=== PATIENT | female | born 1965 | race Caucasian/White ===

== ENCOUNTER 2025-05-27 09:01 | Day surgery (SDC) | payer MEDICAID, SELFPAY ==
--- NOTE | 2025-05-26 19:00 | W.ANESPRE ---
General Info Date of Service Date Performed: 05/27/25 Height: 5 ft 1 in Weight: 87.09 kg Body Mass Index (BMI): 36.2 Surgical Procedure: Operation Date: 05/27/25 11:20 Proposed Procedure Side Surgeon p Gastroscopy Barbara Vallejo MD Meds Allergies and Home Medications Allergies Allergy/AdvReac Type Severity Reaction Status Date / Time No Known Allergies Allergy Verified 05/27/25 09:14 Home Medication ?Medication ?Instructions ?Recorded amlodipine 10 mg tablet 10 mg PO DAILY 05/04/25 losartan 50 mg tablet 50 mg PO DAILY 05/04/25 omeprazole 40 mg capsule,delayed 40 mg PO DAILY 05/04/25 release aspirin 81 mg tablet,delayed 81 mg PO DAILY 05/27/25 release Current Visit Medications: Current Medications Generic Name Dose Route Start Last Admin Trade Name Freq PRN Reason Stop Dose Admin Ringer's Solution 1,000 mls @ 80 mls/hr 05/27/25 06:00 IV 05/27/25 23:59 INFUSION KHUSHBOO IV Miscellaneous Supplies 1 each 05/27/25 06:00 Iv Access IV 05/27/25 23:59 DIRECTED KHUSHBOO Sodium Chloride 0 ml 05/27/25 06:00 Normal Saline Flush 10 Ml Syr IV 05/27/25 23:59 PRN PRN Sodium Chloride 0 ml 05/27/25 06:00 Normal Saline 10 Ml Vial IJ 05/27/25 23:59 DIRECTED PRN Sterile Water 0 ml 05/27/25 06:00 Water,Injection,Sterile 10 Ml Vial IJ 05/27/25 23:59 DIRECTED PRN FOR[facility]LY [facility] Medical History Medical History Abnormal barium swallow (~11/2024) Barium swallow 11/11/2024 done at [facility]. Dizziness and giddiness Gastro-esophageal reflux disease without esophagitis Carpal tunnel syndrome Essential (primary) hypertension Tobacco Smoking/Tobacco Use Status: Current every day Tobacco Type: cigarettes Passive smoking exposure: Yes Alcohol Alcohol Intake: current Alcohol intake frequency: 0-2 drinks per day Alcohol type: wine Substance Use Substance use: Never Substance use type: does not use Vital Signs and Lab Results Vital Signs Most Recent Vital Signs in EMR: Temp Pulse Resp BP Pulse Ox 36.3 C L 102 H 22 153/100 H 98 05/27/25 09:21 05/27/25 09:21 05/27/25 09:21 05/27/25 09:21 05/27/25 09:21 Anesthesia Assessment and Plan Anesthesia History Personal History: No History of Anesthesia Complications Family History: No Family History of Anesthesia Complications Exercise Tolerance Exercise Tolerance: Metabolic Equivalents>4 Cardiac & Pulmonary Exam Cardiac Exam: Normal S1/S2 Heart Sounds Pulmonary Exam: Clear Bilateral Breath Sounds Implantable Cardiac Device Does patient have a Pacemaker or an ICD?: No Airway Exam Known Difficult Airway: No Mallampati Class: 3 Mouth Opening: Narrow (< 3cm) Thyromental Distance: Less than 3 cm Neck Range of Motion: Limited ROM Neck Circumference: Thick Teeth Condition: Edentulous ASA Classification ASA Score: ASA 2 Emergency Case?: No NPO Status NPO Status: NPO Clears >2 hours, Solids >8 hours Anesthesia Plan Resuscitation Status: Full Code Anesthesia Technique: General Anesthesia Airway Planned: Natural Airway Monitors Used: Standard Monitors Preoperative Comments:: 60 yo for EGD. Sig PMHx: HTN (losartan, amlodipine), GERD (omeprazole), Smoker, occ EtOH.
[2025-05-27 09:21] VITALS: BP 153/100; PULSE 102; RESP 22; TEMP 36.3; O2SAT 98
[2025-05-27] MEDS: Lactated Ringers 1,000 ML 80 ML IV (09:49)
[2025-05-27 11:09] VITALS: BMI 36.2
--- NOTE | 2025-05-27 11:30 | BOWEL_PTH ---
PATIENT: Sabrina Cochran LOC: [facility] U#:[id number] AGE/SX: 60/F ROOM: RE05/27/[address]: Barbara Vallejo : 1965 BED: DIS: 05/27/2025 SPEC #: [id number] RECD: 05/27/25 12:28 STATUS: JONATHON REQ #: [id number] BRIE: 05/27/25 11:[address]: Barbara Vallejo DEPT: Surgical Specimen RECD BY: Lola Hardin ENTERED: 05/27/25 12:30 SP TYPE: Bowel OTHR DR: Michelle Carolina Tissues: 1 - BIOPSY BOWEL 2 - STOMACH BIOPSY 3 - BIOPSY BOWEL Procedures: GROSS AND MICRO LEVEL 4 Comments: [id number]
[2025-05-27 11:40] VITALS: BP 107/74; PULSE 89; RESP 16; TEMP 36.5; O2SAT 98
--- NOTE | 2025-05-27 11:56 | W.PM.DSUDISC ---
Date of service: 05/27/25 Discharge Plan Disposition Patient Disposition: Home Condition: Good Discharge Details Reason For Visit: Abnormal imaging study of esophagus Attending Provider: Barbara Vallejo Primary Care Provider: Michelle Carolina Recommendations for Follow Up Recommended tests to be ordered by follow up provider: Follow up pathology Home Meds and New Rx's Prescriptions: Continued losartan 50 mg tablet 50 mg PO DAILY omeprazole 40 mg capsule,delayed release(DR/EC) 40 mg PO DAILY amlodipine 10 mg tablet 10 mg PO DAILY aspirin 81 mg tablet,delayed release (DR/EC) 81 mg PO DAILY Discharge Instructions Additional Instructions: Your procedure went well today. You had some evidence of reflux changes at the esophagus. There was no definitive finding to match your previous imaging. Some routine biopsies were obtained and we will follow up once the pathology returns. Please contact the general surgery office if you have further questions or concerns. 1. Do not drive, drink alcohol, operate machinery, make critical decisions, or do activities that require coordination or balance for 24 hours. 2. Because air was put into your stomach during the procedure, expelling air or burping is normal. 3. Go directly to the emergency room if you notice any of the following: Develop chills (warm to touch), or if you have a thermometer and your temperature is above 101 Difficulty breathing or difficultly swallowing Persistent vomiting Severe abdominal pain, other than gas cramps Severe chest pain Black, tarry stools Any bleeding ? exceeding one tablespoon 4. Call your physician if the site where your intravenous was started becomes red, swollen, painful, and warm to touch. 5. Your physician has reviewed your pre-procedure medications. Please continue to take those medications as previously ordered. You will be given specific information/education regarding any changes to your medications before leaving. Activity:: Activity as Tolerated Diet:: As Tolerated Discharge Orders Discharge Orders: Discharge Order (Routine); Ordered 05/27/25 Ordered By: Barbara Vallejo
--- NOTE | 2025-05-27 12:00 | W.PM.ENDDOP ---
Date of service: 05/27/25 Time of Service: 12:00 Endoscopy Report DATE OF PROCEDURE: 05/27/25 PRE-OP DIAGNOSIS: Esophageal abnormality on imaging POST-OP DIAGNOSIS: same PROCEDURE: Upper endoscopy with biopsy SURGEON: Barbara Vallejo ANESTHESIA TYPE: General:No Airway ESTIMATED BLOOD LOSS: 1 PATHOLOGY: other (Duodenum, Antrum, GE junction biopsy ) COMPLICATIONS: None DISPOSITION: PACU INDICATIONS: Patient is a 60 yo female who presented for an upper endoscopy due to an abnormal finding on a barium swallow study of the distal esophagus. She endorses a history of reflux symptoms but denies other symptoms. FINDINGS: Evidence of small hiatal hernia. GE junction appeared irregular. Potential area of possible outpouching from esophagus but no discreet finding to match previous imaging studies. PROCEDURE DESCRIPTION: After adequate sedation, the upper endoscope was inserted and advanced in the duodenum under direct visualization. The scope was withdrawn and the mucosa inspected. The duodenum appeared normal and a cold forcep biopsy was obtained. The stomach was normal with no evidence of ulcerations or erosions. ?The antrum area was biopsied and also checked for H. pylori.?Retroflexion view in the stomach revealed a small hiatal hernia. At the lower esophagus Z line area, this was inspected and appeared irregular. A cold forcep biopsy of the GE junction was obtained. No evidence of Ramey?s esophagus or strictures. There was potentially a small outpouching of the distal esophagus however no other finding to match previous imaging studies. Otherwise, the esophagus was normal. The scope was completely withdrawn from the patient. The patient tolerated the procedure well with no immediate complications.
[2025-05-27 12:34] VITALS: BP 120/85; PULSE 77; RESP 18; TEMP 36.4; O2SAT 98
--- NOTE | 2025-05-27 13:19 | W.ANESPOSTOP ---
Postoperative Evaluation Date, Time and Location Date Performed: 05/27/25 Time Performed: 13:19 Patient Location: Day Surgery Unit Vital Signs Most Recent Imported Vital Signs: Most Recent Vital Signs Temp Pulse Resp BP Pulse Ox 36.4 C L 77 18 120/85 98 05/27/25 12:34 05/27/25 12:34 05/27/25 12:34 05/27/25 12:34 05/27/25 12:34 Pain Score Most Recent Pain Score: Most Recent Pain Score Pain Level 0 05/27/25 12:34 Assessment Mental Status: Awake (Alert & Oriented to Patient Baseline) Airway and Respiratory Function: Patent airway with normal (patient baseline) respiratory exam Cardiovascular Function: Hemodynamically Stable Hydration Status: Adequately Hydrated Nausea & Vomiting: No Nausea or Vomiting Pain: Pt. Denies Any Pain Peripheral Nerve Block: Patient did not receive a nerve block
== END 2025-05-27 12:30 | disposition home or self-care (01) ==
PROVIDERS: PCP Internal Medicine; Visit Provider Student in an Organized Health Care Education/Training Program
PROC: 0DJ68ZZ Inspection of Stomach, Via Natural or Artificial Opening Endoscopic (ICD-10-PCS; CPT 43235; principal; 2025-05-27 11:15)
DX: R93.3 Abnormal findings on diagnostic imaging of other parts of digestive tract (principal); I10 Essential (primary) hypertension; K21.9 Gastro-esophageal reflux disease without esophagitis; K31.9 Disease of stomach and duodenum, unspecified
CPT/HCPCS: 43239; 88305; J2250; J2405; J2704